=== PATIENT | male | born 1960 | race Caucasian/White ===

== ENCOUNTER 2017-10-17 20:12 | Emergency (ER) | payer OTHER ==
[2017-10-17 20:28] VITALS: BP 143/98; PULSE 74; TEMP 98.8; BMI 49.6
--- NOTE | 2017-10-17 20:30 | PDOC ---
Rapid Medical Evaluation Time Seen by Provider: 10/17/17 20:23 Medical Evaluation: Allergies Allergy/AdvReac Type Severity Reaction Status Date / Time No Known Allergies Allergy Verified 10/05/11 13:27 10/17/17 20:23 I have performed a brief in-person evaluation of this patient. The patient presents with a chief complaint of: penile pain x "a few days", difficulty retracting foreskin, hx of DM Pertinent physical exam findings: patient presented photo appearing to be balanitis/phimosis/candidiasis I have ordered the following: nothing The patient will proceed to the ED for further evaluation.
--- NOTE | 2017-10-17 21:59 | PDOC ---
Attending Attestation - HPI HPI: 10/17/17 22:41 The patient is a 56 year old male with history of DM, not compliant with medications who presents to the ED complaining of several days of penile pain and rash. Patient is uncircumcized and notices difficulty retracting his foreskin. - Physicial Exam PE: 10/17/17 22:44 Constitutional: Awake, alert, oriented. No acute distress. Skin: Skin is warm and dry. No petechiae. No purpura. : Uncircumcised penis. Significant amount of yeast noted with retraction of the foreskin. - Medical Decision Making 10/17/17 22:48 Documentation prepared by Shawna Vale, acting as medical customer service representative for Emani Romero DO. <Shawna Vale - Last Filed: 10/17/17 22:41> - Resident Resident Name: Corby Burgos - ED Attending Attestation I have performed the following: I have examined & evaluated the patient, The case was reviewed & discussed with the resident, I agree w/resident's findings & plan, Exceptions are as noted - Medical Decision Making 10/17/17 21:59 I, Dr. Emani Romero DO, attest that this document has been prepared under my direction and personally reviewed by me in its entirety. I further attest, that it accurately reflects all work, treatment, procedures and medical decision -making performed by me. 10/17/17 22:22 a/p: 56yo male with hx of DM, noncompliant with a penile rash -balanitis on exam -will check labs, will need antifungal treatment and treatment for superimposed bacterial infection -will give ivf hydraiton -will monitor and reassess -no fevers -no cp/sob, no abd pain, no n/v/d -morbidly obese 10/18/17 00:37 pt with mildly elevated glucose and balanitis will treat with fluconazole and keflex will also restart metformin for DM <Emani Romero - Last Filed: 10/18/17 00:46> Discharge Disposition - Discharge Dispostion Last Admission D/C Date: 11/18/04 Decision to Admit order: No <Emani Romero - Last Filed: 10/18/17 00:46> - Diagnosis Balanitis, Uncontrolled diabetes mellitus - Discharge Dispostion Disposition: HOME Condition at time of disposition: Stable - Prescriptions Prescriptions: Cephalexin Monohydrate [Keflex -] 500 mg PO BID #14 capsule metFORMIN HCL [Metformin HCl] 1,000 mg PO BID #120 tablet - Referrals Referrals: ON STAFF,NOT [Primary Care Provider] - Jeremy Green MD [Staff Physician] - Brooks Ivy MD [Staff Physician] - - Patient Instructions Printed Discharge Instructions: DI for Balanitis, DI for Diabetes Type 2 Additional Instructions: Please take all medications as prescribed. Please follow up with your PMD on Saturday. Please return to the Ed with any further concerns or complaints. - Post Discharge Activity
[2017-10-17] MEDS ORDERED: SODIUM CHLORIDE 0.9% 1000 ML INFUS.BAG IV ONE (22:25)
[2017-10-17 22:59] LABS: HEMOGLOBIN 11.9 GM/dL (11.7-16.9); MCH 24.2 pg (25.7-33.7); MCHC 32.1 g/dl (32.0-35.9); MEAN CELL VOLUME 75.4 fl (80-96); MEAN PLT VOLUME 8.9 fl (7.5-11.1); PLATELET COUNT 232 K/MM3 (134-434); RBC 4.91 M/mm3 (4.00-5.60); WHITE BLOOD COUNT 9.3 K/mm3 (4.0-10.0)
[2017-10-17 23:03] LABS: URINE APPEARANCE CLEAR; URINE BILIRUBIN NEGATIVE (<2.0 mg/dL); URINE COLOR LTYELLOW; URINE GLUCOSE (UA) 3+ (NEGATIVE); URINE KETONE NEGATIVE (NEGATIVE); URINE NITRITE NEGATIVE (NEGATIVE); URINE PROTEIN NEGATIVE (NEGATIVE); URINE UROBILINOGEN NEGATIVE mg/dL (0.2-1.0)
[2017-10-17 23:21] LABS: URINE LEUK ESTERASE 2+ (NEGATIVE)
[2017-10-17 23:22] LABS: ANION GAP 7 (8-16); BLOOD UREA NITROGEN 13 mg/dL (7-18); CALCIUM 8.5 mg/dL (8.5-10.1); CHLORIDE 103 mmol/L (98-107); CO2 27 mmol/L (21-32); SODIUM 137 mmol/L (136-145)
[2017-10-17 23:22] LABS: EPI CELLS RARE /HPF (FEW)
[2017-10-17 23:24] LABS: GLUCOSE,RANDOM 309 mg/dL (74-106)
[2017-10-18] MEDS ORDERED: FLUCONAZOLE 50 MG TABLET PO ONE (00:23)
[2017-10-18] MEDS ORDERED: CEPHALEXIN MONOHYDRATE 500 MG CAPSULE (UD) PO ONE (00:23)
[2017-10-18] MEDS ORDERED: FLUCONAZOLE 100 MG TABLET (UD) ONE (00:30)
[2017-10-18] MEDS ORDERED: CEPHALEXIN MONOHYDRATE 500 MG CAPSULE (UD) ONE (00:30)
--- NOTE | 2017-10-18 00:36 | PDOC ---
History of Present Illness - General Chief Complaint: Penile Drainage Stated Complaint: PERSONAL Time Seen by Provider: 10/17/17 20:23 History Source: Patient Exam Limitations: No Limitations - History of Present Illness Initial Comments: 10/18/17 00:38 Patient is a 56M with history of DM here today complaining of penile discharge. He reports one week of white discharge around his distal end of his penis underneath his foreskin. Denies fevers, chills, nausea, vomiting. Denies abdominal pain and testicular pain. Denies pain with urination and increased frequency. Patient reports that he is not taking his medications anymore. Past History - Past Medical History Allergies/Adverse Reactions: Allergies Allergy/AdvReac Type Severity Reaction Status Date / Time No Known Allergies Allergy Verified 10/17/17 20:28 Home Medications: Ambulatory Orders NK [No Known Home Medication] 10/17/17 Anemia: Yes Asthma: No Cancer: No Cardiac Disorders: No CVA: No COPD: No CHF: No Dementia: No Diabetes: Yes (NIDDM) GI Disorders: No Disorders: No HTN: No Hypercholesterolemia: No Liver Disease: No Seizures: No Thyroid Disease: No - Surgical History Abdominal Surgery: Yes (GASTRIC BY PASS) Appendectomy: No Cardiac Surgery: No Cholecystectomy: No Lung Surgery: No Neurologic Surgery: No Orthopedic Surgery: No - Suicide/Smoking/Psychosocial Hx Smoking History: Never smoked Have you smoked in the past 12 months: No Information on smoking cessation initiated: No Hx Alcohol Use: No Drug/Substance Use Hx: No Substance Use Type: None Hx Substance Use Treatment: No Review of Systems - Review of Systems Comments:: 10/18/17 00:39 GENERAL/CONSTITUTIONAL: No fever or chills. No weakness. HEAD, EYES, EARS, NOSE AND THROAT: No change in vision. No sore throat. CARDIOVASCULAR: No chest pain or shortness of breath RESPIRATORY: No cough, wheezing, or hemoptysis. GASTROINTESTINAL: No nausea, vomiting, diarrhea or constipation. GENITOURINARY: No dysuria, frequency, or change in urination. MUSCULOSKELETAL: No joint or muscle swelling or pain. No neck or back pain. SKIN: No rash NEUROLOGIC: No headache, vertigo, loss of consciousness, or change in strength/ sensation. ENDOCRINE: No increased thirst. No abnormal weight change HEMATOLOGIC/LYMPHATIC: No anemia, easy bleeding, or history of blood clots. ALLERGIC/IMMUNOLOGIC: No hives or skin allergy. *Physical Exam - Vital Signs Last Vital Signs Temp Pulse Resp BP Pulse Ox 98.8 F 74 19 143/98 98 10/17/17 20:25 10/17/17 20:25 10/17/17 20:25 10/17/17 20:25 10/17/17 20:25 - Physical Exam Comments: 10/18/17 00:40 GENERAL: Awake, alert, and fully oriented, in no acute distress : Uncircumsized penis with white discharge around distal end. Tender, erythemtaous. No testicular pain. HEAD: No signs of trauma, normocephalic, atraumatic EYES: PERRLA, EOMI, sclera anicteric, conjunctiva clear ENT: Auricles normal inspection, hearing grossly normal, nares patent, oropharynx clear without exudates. Moist mucosa NECK: Normal ROM, supple, no lymphadenopathy, JVD, or masses LUNGS: No distress, speaks full sentences, clear to auscultation bilaterally HEART: Regular rate and rhythm, normal S1 and S2, no murmurs, rubs or gallops, peripheral pulses normal and equal bilaterally. ABDOMEN: Soft, nontender, normoactive bowel sounds. No guarding, no rebound. No masses EXTREMITIES: Normal inspection, Normal range of motion, no edema. No clubbing or cyanosis. NEUROLOGICAL: Cranial nerves II through XII grossly intact. Normal speech, normal gait, no focal sensorimotor deficits SKIN: Warm, Dry, normal turgor, no rashes or lesions noted. ED Treatment Course - LABORATORY CBC & Chemistry Diagram: 10/17/17 22:50 10/17/17 22:50 - ADDITIONAL ORDERS Additional order review: Laboratory Results 10/17/17 10/17/17 22:53 22:50 Sodium 137 Potassium 4.0 Chloride 103 Carbon Dioxide 27 Anion Gap 7 L BUN 13 Creatinine 1.0 Creat Clearance w eGFR > 60 Random Glucose 309 H* Calcium 8.5 Urine Color Ltyellow Urine Appearance Clear Urine pH 5.0 Ur Specific [place] 1.032 Urine Protein Negative Urine Glucose (UA) 3+ H Urine Ketones Negative Urine Blood 1+ H Urine Nitrite Negative Urine Bilirubin Negative Urine Urobilinogen Negative Ur Leukocyte Esterase 2+ H Urine WBC (Auto) 5 Urine RBC (Auto) 10 Ur Epithelial Cells Rare 10/17/17 22:50 RBC 4.91 MCV 75.4 L MCHC 32.1 RDW 17.0 H MPV 8.9 - Medications Given in the ED: ED Medications Discontinued Medications Generic Name Dose Route Start Last Admin Trade Name Kareem PRN Reason Stop Dose Admin Cephalexin HCl 500 mg 10/18/17 00:23 10/18/17 00:34 Keflex - PO 10/18/17 00:24 500 mg ONCE ONE Administration Fluconazole 150 mg 10/18/17 00:23 10/18/17 00:34 Diflucan - PO 10/18/17 00:24 150 mg ONCE ONE Administration Sodium Chloride 1,000 ml 10/17/17 22:25 10/17/17 22:57 Normal Saline - IV 10/17/17 22:26 1,000 ml ONCE ONE Administration Medical Decision Making - Medical Decision Making 10/18/17 00:40 Patient is 56M with history of DM here today with balanitis. Vital signs stable and normal. Given fluconazole after CMP confirmed normal kidney function. Will cover with keflex in addition for possible bacterial superinfection. *DC/Admit/Observation/Transfer Diagnosis at time of Disposition: Balanitis - Discharge Dispostion Disposition: HOME Condition at time of disposition: Good - Referrals Referrals: ON STAFF,NOT [Primary Care Provider] - - Patient Instructions Printed Discharge Instructions: DI for Balanitis Additional Instructions: Please return if you have any new, worsening or concerning symptoms. Please follow up with your primary care physician this week. - Post Discharge Activity
== END 2017-10-18 00:51 | disposition home or self-care (01) ==
LOC: JER 20:12 → JERFT 20:12 → JER 10-18 00:51
PROC: 3E0337Z Introduction of Electrolytic and Water Balance Substance into Peripheral Vein, Percutaneous Approach (ICD-10-PCS; principal; 2017-10-17)
DX: N48.1 Balanitis (principal); E11.65 Type 2 diabetes mellitus with hyperglycemia
CPT/HCPCS: 36415; 80048; 81003; 81015; 85027; 87086; 99282-25; J7030

== ENCOUNTER 2021-06-05 04:09 | Day surgery (SDC) | payer BC, OTHER ==
[2021-06-01 14:21] VITALS: BMI 52.1
[2021-06-05 10:03] LABS: HEMATOCRIT 35.7 % (35.4-49); HEMOGLOBIN 11.3 GM/dL (11.7-16.9); MCH 21.7 pg (25.7-33.7); MCHC 31.6 g/dl (32.0-35.9); MEAN CELL VOLUME 68.8 fl (80-96); MEAN PLT VOLUME 8.9 fl (7.5-11.1); PLATELET COUNT 291 10^3/uL (134-434); RBC 5.19 M/mm3 (4.00-5.60); RDW 21.4 % (11.9-15.9); WHITE BLOOD COUNT 8.6 K/mm3 (4.0-10.0)
[2021-06-05 10:15] LABS: CALCIUM 9.5 mg/dL (8.5-10.1)
[2021-06-05 10:16] LABS: BLOOD UREA NITROGEN 13.6 mg/dL (7-18)
[2021-06-05 10:19] LABS: CREATININE 0.9 mg/dL (0.55-1.3)
[2021-06-05 10:33] LABS: INR 0.97 (0.83-1.09); PROTHROMBIN TIME (PATIENT) 11.2 SEC (9.7-13.0)
[2021-06-05 10:36] LABS: ACTIVATED PTT 29.5 SECONDS (25.2-36.5)
[2021-06-05] MEDS ORDERED: ROCURONIUM BROMIDE 50 MG/5 ML SYRINGE ONE (12:11)
[2021-06-05] MEDS ORDERED: PROPOFOL 20 ML ONE (12:11)
[2021-06-05] MEDS ORDERED: MIDAZOLAM HCL 2 MG/2 ML SINGLE DOSE VIAL ONE (12:11)
[2021-06-05] MEDS ORDERED: BUPIVACAINE HCL/PF 0.5% (5MG/ML) 10 ML VIAL ONE (12:18)
[2021-06-05] MEDS ORDERED: PROMETHAZINE HCL 25 MG/1 ML VIAL IVPUSH PRN (12:20)
[2021-06-05] MEDS ORDERED: oxyCODONE HCL 5 MG TABLET PO PRN (12:20)
[2021-06-05] MEDS ORDERED: ONDANSETRON 4 MG/2 ML VIAL IVPUSH PRN (12:20)
[2021-06-05] MEDS ORDERED: LACTATED RINGERS SOLUTION 1,000 ML IV SCH (12:30)
[2021-06-05] MEDS ORDERED: PHENYLEPHRINE HCL 10 MG/1 ML SINGLE DOSE VIAL ONE (13:14)
[2021-06-05] MEDS ORDERED: BACITRACIN 15 GM TUBE TOPICAL OINTMENT ONE (13:15)
[2021-06-05] MEDS ORDERED: BUPIVACAINE HCL/PF 0.5% (5 MG/ML) 30 ML VIAL IJ ONE (13:49)
[2021-06-05 18:19] VITALS: BP 130/70; PULSE 77; TEMP 97.8
== END 2021-06-05 18:35 | disposition home or self-care (01) ==
LOC: JASU-SURG 04:09
PROVIDERS: ATTEND Urology
PROC: 0VNS0ZZ Release Penis, Open Approach (ICD-10-PCS; 2021-06-05)
PROC: 0VTTXZZ Resection of Prepuce, External Approach (ICD-10-PCS; principal; 2021-06-05 11:00)
DX: N47.1 Phimosis (principal); N48.89 Other specified disorders of penis; E11.9 Type 2 diabetes mellitus without complications; Z79.84 Long term (current) use of oral hypoglycemic drugs
CPT/HCPCS: 36415; 80048; 82962; 85027; 85610; 85730; 88304-TC; 93005; 93010; 94760